=== PATIENT | female | born 1980 | race Two or more races ===

== ENCOUNTER 2023-11-01 09:11 | Outpatient (CLI) | payer OTHER | END 2023-11-01 09:38 | disposition home or self-care (01) | LOC: TOM 09:11 | PROVIDERS: ATTEND Specialist | DX: K57.32 Diverticulitis of large intestine without perforation or abscess without bleeding (principal); K46.0 Unspecified abdominal hernia with obstruction, without gangrene; K45.8 Other specified abdominal hernia without obstruction or gangrene; M99.01 Segmental and somatic dysfunction of cervical region; M99.02 Segmental and somatic dysfunction of thoracic region; M99.03 Segmental and somatic dysfunction of lumbar region ==